=== PATIENT | female | born 1960 | race Caucasian/White ===

== ENCOUNTER 2019-03-08 12:42 | Emergency (ER) | payer MEDICARE, MEDICAID ==
[~2019-03-08] VITALS: Ht 165.1 cm; Wt 68.0 kg
[~2019-03-08 12:42] MED LIST: TRAZ-251 PO; VENL150T3 PO; VENL75CA61 PO
[2019-03-08 12:59] VITALS: BP 151/102
[2019-03-08] MEDS ORDERED: TETanus/Pertussis (Acell)/Diphther VAC/PF (Tdap-Adult) 0.5ml syringe IMVAC ONE (14:50)
[2019-03-08] MEDS ORDERED: tetanus & diphtheria toxoid (Td) vaccine 0.5ml IMVAC ONE (14:50)
[2019-03-08] MEDS ORDERED: TRAM50TA2 PO (15:51)
== END 2019-03-08 16:17 | disposition home or self-care (01) ==
LOC: ER 12:43
DX: S62.635A Displaced fracture of distal phalanx of left ring finger, initial encounter for closed fracture (principal); S66.812A Strain of other specified muscles, fascia and tendons at wrist and hand level, left hand, initial encounter; F41.9 Anxiety disorder, unspecified; F32.9 Major depressive disorder, single episode, unspecified; F17.200 Nicotine dependence, unspecified, uncomplicated; Z79.899 Other long term (current) drug therapy; Z88.8 Allergy status to other drugs, medicaments and biological substances; X58.XXXA Exposure to other specified factors, initial encounter; Y93.89 Activity, other specified; Y92.89 Other specified places as the place of occurrence of the external cause; Y99.8 Other external cause status
CPT/HCPCS: 29125; 29130; 73090; 73140; 90471; 99283

== ENCOUNTER 2019-04-02 11:41 | Outpatient (CLI) | payer MEDICARE, MEDICAID ==
[~2019-04-02 11:41] MED LIST changes: +TRAM50TA2 PO
== END 2019-04-02 12:56 | disposition home or self-care (01) ==
LOC: ORTHO 11:41
PROVIDERS: ATTEND Orthopaedic Surgery
DX: S62.635D Displaced fracture of distal phalanx of left ring finger, subsequent encounter for fracture with routine healing (principal); I10 Essential (primary) hypertension; Z87.891 Personal history of nicotine dependence; X58.XXXD Exposure to other specified factors, subsequent encounter
CPT/HCPCS: 73140; G0463

== ENCOUNTER 2024-11-24 19:15 | Emergency (ER) | payer MEDICAID, MEDICARE ==
[~2024-11-24] VITALS: Ht 165.1 cm; Wt 80.3 kg
[~2024-11-24 19:15] MED LIST changes: -TRAM50TA2 PO
[2024-11-24 19:46] VITALS: BP 158/99; PULSE 90; RESP 16; O2SAT 99
--- NOTE | 2024-11-24 20:54 | RADIOLOGY REPORT ---
CLINICAL INDICATION: HANDPAIN TECHNIQUE: 3 radiographic views of the hand were obtained. Comparison: None FINDINGS/IMPRESSION: There is abnormal configuration of the mid to distal scaphoid on a single view which may be positiona l. Recommend correlation with point tenderness. Otherwise, no evidence of acute fracture or disloca tion. The visualized joint space is well maintained. The alignment is anatomical. There is no radiopaque foreign body. A ring is noted overlying the proximal phalanx of the 4th digit.
--- NOTE | 2024-11-24 22:07 | Physician Documentation ---
History of Present Illness ~ Chief Complaint: Bite-animal Stated Complaint: DOG BITE ON FINGER Time Seen by MD: 21:11 OK to notify your PCP?: Yes Primary Medical Doctor: [facility] Source: patient Mode of Arrival: POV Exam Limitations: no limitations HPI Delmi is a 63-year-old female with a laceration to her right pinky after breaking up a dog fight prior to arrival. She states that it was not her dog but was that the forgeman helper of the dog reported it was fully vaccinated for rabies. No bleeding from site on arrival. Good CSM. Tetanus within 5 years?: No Medication Reconciliation Allergies: Coded Allergies: nefazodone (Verified Allergy, Unknown, 11/24/24) Scheduled Amox Tr/Potassium Clavulanate (Augmentin 875-125 Tablet), 1 TAB PO Q12H Venlafaxine HCl (Venlafaxine HCl ER), 1 TAB PO DAILY Venlafaxine Hcl (Venlafaxine Hcl Er), 1 CAP PO DAILY Scheduled PRN Trazodone HCl (Trazodone HCl), 0.5 TAB PO HS PRN for insomnia Past Medical History Past Medical History: Anxiety, Depression Review of Systems All Other Systems at this time: Reviewed and Negative Physical Exam Vital Signs: RN Vital Signs have been reviewed: Yes, Temperature: 97.7, Source: Temporal, Heart Rate: 90, Respiratory Rate: 16, BP: 158/99, Pulse Oximetry: 99, Weight: 80.300 Oxygen Flow Rate: 0 Pulse Oximetry Reflects: adequate oxygenation Physical Exam General: Alert, no apparent distress. HEENT: PERRL, EOMI, no injection, moist mucous membranes. Neck: Full range of motion. Respiratory: Lungs clear, no respiratory distress. Chest: No accessory muscle use. Cardiovascular: Regular rate and rhythm, no murmurs. Gastrointestinal: Soft, nontender, nondistended. Bowels sounds present. Extremities: Normal range of motion, no deformity. Neurologic: Oriented x4. Psychiatric: Normal mood and affect. Skin: Normal color, warm and dry. Approximately 1-1/2 cm deep laceration to r ight 5th finger at the palmar side. Tendon or fascia seen. Edges well approximated, no S/S of infection. Procedures Laceration/Wound Repair Laceration/Wound Repair : Location: right 5th finger Anesthesia: Lidocaine w/ Epi Prep: irrigated by nurse Irrigated w/ Saline (mls): 1000 Debrided: minimal Undermining: none Margins: flaps aligned Repaired: skin Wound Repaired With: sutures Suture Size/Type: 4-0, ethilon Number of Superficial Sutures: 2 Layer Closure?: No Dressing Applied: simple, non-adherent Splint Applied?: Yes Type of Splint Applied: digit splint Sling Applied?: No Tolerated Procedure Well?: yes, no complications Progress Results/Orders Reviewed/noted all lab results: Yes Results/Orders Orders - GERI SHAH Laceration/I&D Tray Set Up (11/24/24 ) * Additional Wound Care Orders (11/24/24 22:01) Ortho Orders (11/24/24 ) Completed Orders - GERI SHAH Lidocaine 1% W/Epi 1:100,000 (Xylocaine (11/24/24 22:05) Cefazolin Im Kit (Er Only) (Ancef Im Kit (11/24/24 22:05) Medications Received in ER Medications (Trade) Dose Ordered Sig/Keith Route PRN Reason Start Time Stop Time Status Last Admin Dose Admin (Ancef IM kit (ER only)) 1 gm ONCE ONCE IM 11/24/24 22:05 11/24/24 22:06 DC 11/24/24 22:30 1 GM Vital Signs 11/24/24 19:46 Temp 97.7 Pulse 90 Resp 16 B/P (MAP) 158/99 Pulse Ox 99 O2 Flow Rate 0 EKG/XRAY/CT/US/VASC/MRI Bone/Soft Tissue X-Ray (Ext.) : Additional Comment Right hand x-ray as interpreted by me. No foreign body seen. No acute fracture. No joint dislocation. Medical Decision Making Findings Delmi this is a 63-year-old female with a laceration to her right pinky finger on the palmar side after breaking up a dog fight. She has full range of motion in the pinky. I consulted with Dr. Aguirre on this as this is quite deep and can see a white structure. Dr. Aguirre recommended loosely suturing to approximate the edges, splinting the finger, and giving 1 g Ancef IM. Using shared decision-making with the patient she opted not to get a rabies vaccine. Her finger x-ray is normal no signs of fracture. I applied 2 sutures to loosely approximate the edges and we applied a finger splint to assist in healing. We discussed that this dog bite we will have to heal from secondary intention weaning from the inside out. She was given a prescription for Augmentin and given strict instructions for return in case this becomes infected. She should follow up with her primary care provider in the next 3 days and return back here for any new or worsening symptoms. She should get the sutures removed in the ne xt 10 days. She agrees with this plan. Differential Dx:Considerations: Include: Contusion, Fracture, Neurovascular injury, Retained foreign body Departure Disposition: 01 HOME / SELF CARE / HOMELESS Impression: Primary Impression: Dog bite Condition: Stable Discharge Instructions: Animal Bite, Adult Additional Instructions: Please take all antibiotics as prescribed. Keep wound clean and dry. Please keep the splint on and in place. You have [address] and these will need removed in the next 10 days. This will heal from secondary intention so from the inside out. If there is any signs of infection please be seen as you may need a 2nd antibiotic. Follow up with her primary care provider in the next 3 days and return back here for any new or worsening symptoms. Referrals: NO PRIMARY CARE PROVIDER (PCP) Prescriptions Amox Tr/Potassium Clavulanate (Augmentin 875-125 Tablet) 1 Each Tablet 1 TAB PO Q12H for 10 Days, #20 TAB Prov: GERI SHAH 11/24/24 Education Educated: Patient Educated regarding: diagnosis, treatment, prognosis, need for follow up Signature Scribe Signature: . Attestation: Scribed for Geri Shah by Geri Edmondson NP . 11/24/24 23:40 GERI SHAH November 24, 2024 22:07
[2024-11-24] MEDS: LIDOcaine 1% W/epiNEPHrine 1:100,000 20ml vial SQ ONE (22:12)
[2024-11-24] MEDS ORDERED: AMOX-117 PO (22:29)
[2024-11-24] MEDS: ceFAZolin 1gm IM kit IM ONE (22:30)
[2024-11-24 23:39] VITALS: TEMP 97.7
== END 2024-11-24 23:46 | disposition home or self-care (01) ==
LOC: ER 19:16
DX: S61.216A Laceration without foreign body of right little finger without damage to nail, initial encounter (principal); W54.0XXA Bitten by dog, initial encounter; Y93.89 Activity, other specified; Y92.89 Other specified places as the place of occurrence of the external cause; Y99.8 Other external cause status
CPT/HCPCS: 12001; 73130; 96372; 99283; J0690; J7030; Z7610